=== PATIENT | female | born 1995 | race Caucasian/White ===

== ENCOUNTER 2017-01-08 15:17 | Emergency (ER) | payer MEDICAID ==
--- NOTE | 2017-01-08 17:18 | EDPHY ---
H & P Stated Complaint: L wrist pain post injury 1month ago Time Seen by Provider: 01/08/17 17:12 HPI/ROS: CHIEF COMPLAINT: Left wrist pain HISTORY OF PRESENT ILLNESS: The patient is a 21-year-old female who comes to the emergency department complaining of left wrist pain. She states that she fell snowboarding about a month ago and hyperflexed her wrist. She has had pain in that area ever since. it is over the dorsal wrist. No snuffbox tenderness or lateral pain. She has pain with flexion and extension of her wrist but not lateral motion. No tingling or numbness. She has not been evaluated prior to today for this injury. REVIEW OF SYSTEMS: Constitutional: denies: chills, fever, recent illness, recent injury EENTM: denies: blurred vision, double vision, nose congestion Respiratory: denies: cough, shortness of breath Cardiac: denies: chest pain, irregular heart rate, lightheadedness, palpitations Gastrointestinal/Abdominal: denies: abdominal pain, diarrhea, nausea, vomiting, blood streaked stools Genitourinary: denies: dysuria, frequency, hematuria, pain Musculoskeletal: See HPI Skin: denies: lesions, rash, jaundice, bruising Neurological: denies: headache, numbness, paresthesia, tingling, dizziness, weakness Hematologic/Lymphatic: denies: blood clots, easy bleeding, easy bruising Immunologic/allergic: denies: HIV/AIDS, transplant EXAM: GENERAL: Well-appearing, well-nourished and in no acute distress. HEAD: Atraumatic, normocephalic. EYES: Pupils equal round and reactive to light, extraocular movements intact, sclera anicteric, conjunctiva are normal. ENT: TMs normal, nares patent, oropharynx clear without exudates. Moist mucous membranes. NECK: Normal range of motion, supple without lymphadenopathy or JVD. LUNGS: Breath sounds clear to auscultation bilaterally and equal. No wheezes rales or rhonchi. HEART: Regular rate and rhythm without murmurs, rubs or gallops. ABDOMEN: Soft, nontender, normoactive bowel sounds. No guarding, no rebound. No masses appreciated. BACK: No CVA tenderness, no spinal tenderness, step-offs or deformities EXTREMITIES: Left dorsal wrist pain with flexion and extension. No visible deformity or swelling. NEUROLOGICAL: Cranial nerves II through XII grossly intact. Normal speech, normal gait. 5/5 strength, normal movement in all extremities, normal sensation PSYCH: Normal mood, normal affect. SKIN: Warm, dry, normal turgor, no visible rashes or lesions. Source: Patient Exam Limitations: No limitations - Personal History Current Tetanus/Diphtheria Vaccine: Yes Current Tetanus Diphtheria and Acellular Pertussis (TDAP): Yes - Medical/Surgical History Hx Asthma: No Hx Chronic Respiratory Disease: No Hx Diabetes: No Hx Cardiac Disease: No Hx Renal Disease: No Hx Cirrhosis: No Hx Alcoholism: No Hx HIV/AIDS: No Hx Splenectomy or Spleen Trauma: No Other PMH: depression - Family History Significant Family History: No pertinent family hx - Social History Smoking Status: Never smoked Alcohol Use: Sober Drug Use: None Constitutional: Initial Vital Signs Heart Rate 85 01/08/17 15:28 Respiratory Rate 16 01/08/17 15:28 Blood Pressure 118/69 01/08/17 15:28 O2 Sat (%) 97 01/08/17 15:28 O2 Delivery Mode Room Air Allergies/Adverse Reactions: No Known Allergies Allergy (Verified 10/18/16 18:08) Home Medications: Medication Instructions Recorded Sertraline HCl 07/30/16 Medical Decision Making - Diagnostics Imaging: X-ray: Left wrist x-ray was obtained. I viewed the images myself on the PACS system. My interpretation of the images is: Negative. The radiologist interpretation is negative. Procedures: Procedure: Splint placement. A Velcro wrist splint was applied. After application of the splint I returned and re-examined the patient. The splint was adequately immobilizing the joint and distal to the splint the patient's circulation and sensation was intact. ED Course/Re-evaluation: 6:15 p.m. we discussed the patient's x-ray results. She is relieved. I will place her in a Velcro brace and have her follow up with Hand surgery. I suspect sprain. Differential Diagnosis: Partial list of the Differential diagnosis considered include but were not limited to; wrist sprain, fracture, subluxation , scaphoid injury and although unlikely based on the history and physical exam, I also considered vascular disease, carpal tunnel, infection. I discussed these differential diagnoses and the plan with the patient as well as the usual and expected course. The patient understands that the diagnosis is provisional and that in medicine we are not always correct and that further workup is often warranted. Usual and customary warnings were given. All of the patient's questions were answered. The patient was instructed to return to the emergency department should the symptoms at all worsen or return, otherwise to followup with the physician as we discussed. Departure - Departure Disposition: Home, Routine, Self-Care Clinical Impression: Left wrist sprain Qualifiers: Encounter type: initial encounter Qualified Code(s): S63.502A - Unspecified sprain of left wrist, initial encounter Condition: Fair Instructions: Wrist Sprain (ED) Referrals: NONE *PRIMARY CARE P,. [Primary Care Provider] - As per Instructions Daniela Gallegos MD [Medical Doctor] - As per Instructions
[2017-01-08 18:31] VITALS: BP 121/81; PULSE 68; RESP 12; O2SAT 95
== END 2017-01-08 18:20 | disposition home or self-care (01) ==
DX: S63.502A Unspecified sprain of left wrist, initial encounter (principal); V00.311A Fall from snowboard, initial encounter; Y93.23 Activity, snow (alpine) (downhill) skiing, snowboarding, sledding, tobogganing and snow tubing
CPT/HCPCS: L3908

== ENCOUNTER 2017-01-15 18:24 | Emergency (ER) | payer MEDICAID ==
[2017-01-15 18:39] VITALS: RESP 16; TEMP 97.9; O2SAT 97
--- NOTE | 2017-01-15 18:53 | EDPHY ---
H & P Stated Complaint: dx sprained wrist/in splint/tingling Time Seen by Provider: 01/15/17 18:44 HPI/ROS: CHIEF COMPLAINT: Wrist pain and paresthesia HISTORY OF PRESENT ILLNESS: The patient is a 21-year-old female who comes to the emergency department complaining of continued wrist pain and now paresthesias in the web space of her left thumb. I saw her 1 week ago . At that time she is complaining of left wrist pain for 1 month after a snowboard accident when she fell on an outstretched hand. We completed x-rays that were unremarkable and I placed her in a Velcro wrist splint for comfort. I had her follow up with Hand surgery. She made appoint with Dr. Daniela Gallegos but cannot get in until January 22. She returns today because since she began wearing the Velcro wrist splint she has developed some numbness in the web space of her left thumb. She still has normal range of motion. She has pain to her wrist her with flexion and extension which is unchanged from previous. No visible swelling or erythema. No neck pain or shoulder pain. REVIEW OF SYSTEMS: Constitutional: denies: chills, fever, recent illness, recent injury EENTM: denies: blurred vision, double vision, nose congestion Respiratory: denies: cough, shortness of breath Cardiac: denies: chest pain, irregular heart rate, lightheadedness, palpitations Gastrointestinal/Abdominal: denies: abdominal pain, diarrhea, nausea, vomiting, blood streaked stools Genitourinary: denies: dysuria, frequency, hematuria, pain Musculoskeletal: See HPI Skin: denies: lesions, rash, jaundice, bruising Neurological: denies: headache, numbness, paresthesia, tingling, dizziness, weakness Hematologic/Lymphatic: denies: blood clots, easy bleeding, easy bruising Immunologic/allergic: denies: HIV/AIDS, transplant EXAM: GENERAL: Well-appearing, well-nourished and in no acute distress. HEAD: Atraumatic, normocephalic. EYES: Pupils equal round and reactive to light, extraocular movements intact, sclera anicteric, conjunctiva are normal. ENT: TMs normal, nares patent, oropharynx clear without exudates. Moist mucous membranes. NECK: Normal range of motion, supple without lymphadenopathy or JVD. LUNGS: Breath sounds clear to auscultation bilaterally and equal. No wheezes rales or rhonchi. HEART: Regular rate and rhythm without murmurs, rubs or gallops. ABDOMEN: Soft, nontender, normoactive bowel sounds. No guarding, no rebound. No masses appreciated. BACK: No CVA tenderness, no spinal tenderness, step-offs or deformities EXTREMITIES: Normal range of motion, no pitting or edema. No clubbing or cyanosis. No visible swelling. Pain with flexion or extension of wrist. Decreased sensation to webspace of left thumb. No abnormalities and forearm or elbow. No pain or tenderness or swelling of elbow. NEUROLOGICAL: Cranial nerves II through XII grossly intact. Normal speech, normal gait. 5/5 strength, normal movement in all extremities, paresthesias as above PSYCH: Normal mood, normal affect. SKIN: Warm, dry, normal turgor, no visible rashes or lesions. Source: Patient Exam Limitations: No limitations - Personal History LMP (Females 10-55): Extended Cycle BCP/Inj Current Tetanus/Diphtheria Vaccine: Yes - Medical/Surgical History Hx Asthma: No Hx Chronic Respiratory Disease: No Hx Diabetes: No Hx Cardiac Disease: No Hx Renal Disease: No Hx Cirrhosis: No Hx Alcoholism: No Hx HIV/AIDS: No Hx Splenectomy or Spleen Trauma: No Other PMH: depression - Family History Significant Family History: No pertinent family hx - Social History Smoking Status: Never smoked Alcohol Use: Sober Drug Use: None Constitutional: Initial Vital Signs Temperature (C) 36.6 C 01/15/17 18:36 Heart Rate 92 01/15/17 18:36 Respiratory Rate 16 01/15/17 18:36 Blood Pressure 106/63 01/15/17 18:36 O2 Sat (%) 97 01/15/17 18:36 O2 Delivery Mode Room Air Allergies/Adverse Reactions: No Known Allergies Allergy (Verified 01/15/17 18:36) Home Medications: Medication Instructions Recorded Sertraline HCl 07/30/16 Medical Decision Making Procedures: Procedure: Splint placement. A thumb spica splint was applied. After application of the splint I returned and re-examined the patient. The splint was adequately immobilizing the joint and distal to the splint the patient's circulation and sensation was intact. ED Course/Re-evaluation: The patient has continued pain and worsening paraesthesia since stopped beginning to wear a Velcro brace. I had her remove the brace. She has not been wearing it at night which I think is appropriate. I will refer her to other hand surgeons that maybe she can see sooner. I have paged Dr. Khan for consultation. 7:05 p.m. I spoke with Dr. Khan. He recommends a looser fitting or more comfortable brace for radial nerve compression. He suspects a scaphoid fracture that is not visible on x-ray. He will follow up with her in the clinic. Differential Diagnosis: Partial list of the Differential diagnosis considered include but were not limited to; wrist sprain, fracture, subluxation, neuropathy and although unlikely based on the history and physical exam, I also considered tendinitis, elbow injury, cervical spine injury. I discussed these differential diagnoses and the plan with the patient as well as the usual and expected course. The patient understands that the diagnosis is provisional and that in medicine we are not always correct and that further workup is often warranted. Usual and customary warnings were given. All of the patient's questions were answered. The patient was instructed to return to the emergency department should the symptoms at all worsen or return, otherwise to followup with the physician as we discussed. Departure - Departure Disposition: Home, Routine, Self-Care Clinical Impression: Paresthesia Wrist pain Qualifiers: Laterality: left Qualified Code(s): M25.532 - Pain in left wrist Condition: Good Instructions: Wrist Injury (ED), Splint Care (ED) Additional Instructions: We consulted Dr. Khan from the emergency department. He is on-call and should be able to see you sooner. Please make sure the office staff is aware of this when you call. Referrals: NONE *PRIMARY CARE P,. [Primary Care Provider] - As per Instructions Campbell Khan MD [Medical Doctor] - As per Instructions Lisa Almaguer MD [Medical Doctor] - As per Instructions
[2017-01-15 20:07] VITALS: BP 118/75; PULSE 67
== END 2017-01-15 20:07 | disposition home or self-care (01) ==
DX: R20.2 Paresthesia of skin (principal); M25.532 Pain in left wrist

== ENCOUNTER 2017-03-21 21:18 | Emergency (ER) | payer MEDICAID ==
[2017-03-21] MEDS ORDERED: FLUORESCEIN SODIUM 1 MG STRIP OP ONE (21:26)
[2017-03-21] MEDS ORDERED: PROPARACAINE 0.5% 15 ML OPHT DROP OP ONE (21:26)
[2017-03-21] MEDS ORDERED: GENTAMICIN 0.3% OINT PREPACK OPHT.OINT TAKEHOME ONE (22:23)
--- NOTE | 2017-03-21 22:39 | EDPHY ---
H & P Time Seen by Provider: 03/21/17 21:26 HPI/ROS: CHIEF COMPLAINT: Left eye redness HISTORY OF PRESENT ILLNESS: 21-year-old female presents emergency department complaining of red eye redness, pain and discharge that started this afternoon. The patient reports she feels like there is something in her eye. She denies sick contacts, no recent cough or cold. No headache, no eye pain, no flashing lights, sharp pain or floaters. Tetanus is up-to-date. Patient does not wear contact lenses. Smoking Status: Never smoked Physical Exam: Left eye Visual Acuity: Noted from Nurse's notes. Pupils: PERRLA, EOMI, no nystagmus, no trauma, no injection. Lids: No edema or swelling Skin: No proptosis, no periorbital erythema or swelling, no vesicles, no foreign body on lid eversion Conjunctivae: injected, not icteric, yellow discharge Cornea: Exam with slit lamp and fluoroscein shows no corneal abrasion, negative Tom Anterior chamber: Normal, no hyphema or hypopyon Constitutional: Initial Vital Signs Temperature (C) 36.4 C 03/21/17 21:28 Heart Rate 75 03/21/17 21:28 Respiratory Rate 14 03/21/17 21:28 Blood Pressure 123/78 H 03/21/17 21:28 O2 Sat (%) 94 03/21/17 21:28 O2 Delivery Mode Room Air Allergies/Adverse Reactions: No Known Allergies Allergy (Verified 01/15/17 18:36) Home Medications: Medication Instructions Recorded Sertraline HCl 07/30/16 Depo-Provera 03/21/17 MDM/Departure - MDM Medications Given: Discontinued Medications Fluorescein Sodium (Pheso-M-Hrmor) 1 mg OP EDNOW ONE Stop: 03/21/17 21:27 Last Admin: 03/21/17 21:36 Dose: 1 mg Gentamicin Sulfate (Gentak 0.3% Opht Oint Prepack) 1 tube TAKEHOME EDNOW ONE Stop: 03/21/17 22:24 Last Admin: 03/21/17 22:33 Dose: 1 tube Proparacaine HCl (Alcaine 0.5%) 1 drops OP EDNOW ONE Stop: 03/21/17 21:27 Last Admin: 03/21/17 21:36 Dose: 1 drop - Depart Disposition: Home, Routine, Self-Care Clinical Impression: Conjunctivitis Qualifiers: Conjunctivitis type: acute Acute conjunctivitis type: unspecified Laterality: left Qualified Code(s): H10.32 - Unspecified acute conjunctivitis, left eye Condition: Good Instructions: Gentamicin (Into the eye), Conjunctivitis (ED) Additional Instructions: Use gentamicin eye ointment 4 times a day for 7 days. Cool compresses to your eye, saline drops as much as needed for discomfort. Wash your hands frequently. Referrals: Cathie Gray MD [Non Staff Provider (MD)] - As per Instructions ( Wagon Washer on-call)
[2017-03-21 22:49] VITALS: BP 107/71; PULSE 73; RESP 16; TEMP 98.1; O2SAT 96
== END 2017-03-21 22:49 | disposition home or self-care (01) ==
DX: H10.32 Unspecified acute conjunctivitis, left eye (principal)

== ENCOUNTER 2018-01-28 08:07 | Emergency (ER) | payer MEDICAID ==
[2018-01-28 08:12] VITALS: BP 127/89; PULSE 82; RESP 18; TEMP 98.6; O2SAT 98
--- NOTE | 2018-01-28 08:31 | EDPHY ---
H & P Time Seen by Provider: 01/28/18 08:30 HPI/ROS: Chief complaint. Sore throat HPI. 22-year-old male sore throat for 4 days. Sick contacts at school. She has congestion a little bit of cough. Hurts to swallow but she is able to swallow secretions per she is a little hoarse. No shortness of breath or chest pain. No abdominal pain or vomiting or diarrhea. No rash. Subjective fever and chills ROS Constitutional. Fever and chills Eyes. no problems with vision ENT. Congestion and sore throat Cardiovascular. no chest pain Respiratory. No shortness of breath but slight cough Abdominal. no abdominal pain, no nausea/vomiting, no diarrhea . no problems urinating MS. no calf pain/swelling, no neck/back pain, no joint pain Skin. no rash Lymph. no swollen glands Neuro. no headache, no dizziness, no difficulty walking or with speech Past Medical/Surgical History: Depression Social History: Single, nonsmoker, no alcohol Smoking Status: Never smoked Physical Exam: General Appearance: Alert while female mild distress vital signs are stable Eyes: Pupils equal and round no pallor or injection. ENT, tympanic membranes normal. Pharynx injected without exudate. Mucous membranes are moist. Anterior cervical adenopathy Respiratory: There are no retractions, lungs are clear to auscultation. Cardiovascular: Regular rate and rhythm. Gastrointestinal: Abdomen is soft and nontender, no masses, bowel sounds normal. Neurological: Awake and alert, sensory and motor exams grossly normal. Skin: Warm and dry, no rashes. Musculoskeletal: Neck is supple nontender. Extremities symmetrical, full range of motion. Psychiatric: Patient is oriented X 3, there is no agitation. Constitutional: Initial Vital Signs Temperature (C) 37 C 01/28/18 08:08 Heart Rate 82 01/28/18 08:08 Respiratory Rate 18 01/28/18 08:08 Blood Pressure 127/89 H 01/28/18 08:08 O2 Sat (%) 98 01/28/18 08:08 O2 Delivery Mode Room Air Allergies/Adverse Reactions: No Known Allergies Allergy (Verified 01/28/18 08:08) Home Medications: Medication Instructions Recorded Depo-Provera 03/21/17 Penicillin V Potassium [Penicillin 500 mg PO BID #14 tab 01/28/18 VK] Medical Decision Making Procedures: Decadron and ibuprofen by mouth ED Course/Re-evaluation: Patient remained stable. She and I discussed treatment plan including criteria for return importance of follow-up and further evaluation. She expresses understanding and agreement Differential Diagnosis: I have considered viral versus bacterial etiology. I considered strep throat as well as glossitis. No evidence for epiglottitis. Departure - Departure Disposition: Home, Routine, Self-Care Clinical Impression: Acute pharyngitis Qualifiers: Pharyngitis/tonsillitis etiology: unspecified etiology Qualified Code(s): J02.9 - Acute pharyngitis, unspecified Condition: Good Instructions: Pharyngitis (ED) Additional Instructions: Drink plenty of fluids and stay hydrated. Penicillin as antibiotic. Tylenol 1000 mg every 4-6 hours, ibuprofen 600 mg every 6 hr needed for fever and sore throat. Return for worsening pain, fever, trouble swallowing and breathing. Recheck in 2 days if not improved Referrals: [facility],. [Clinic] - 2-3 days, if not improved Stand Alone Forms: School Excuse Prescriptions: Penicillin V Potassium [Penicillin VK] 500 mg PO BID #14 tab
[2018-01-28] MEDS ORDERED: IBUPROFEN 600 MG TAB PO ONE (08:42)
[2018-01-28] MEDS ORDERED: DEXAMETHASONE 4 MG TAB PO ONE (08:43)
== END 2018-01-28 09:26 | disposition home or self-care (01) ==
DX: J02.9 Acute pharyngitis, unspecified (principal)

== ENCOUNTER 2018-03-05 20:13 | Emergency (ER) | payer MEDICAID ==
--- NOTE | 2018-03-05 20:42 | EDPHY ---
H & P Stated Complaint: bilat leg pain since from dancing Time Seen by Provider: 03/05/18 20:36 HPI/ROS: HPI: This is a 22-year-old female who presents with Chief Complaint: Bilateral leg pain since from dancing Location: Bilateral leg Quality: Pain Duration: 5 days Signs and Symptoms: No bleeding, no radiation, no numbness, no weakness, no tingling, no incontinence, no decreased range of motion, no swelling, no pain, no fever Timing: Severity: Context: On Depo Provera. Denies LOC/head injury/neck pain/dizziness/nausea/ vomiting/amnesia. Modifying Factors: Comment: ROS: see HPI Constitutional: No fever, no chills, no weight loss Eyes: No blurred vision Respiratory: No shortness of breath, no cough Cardiovascular: No chest pain Gastrointestinal: No nausea, no vomiting no diarrhea Genitourinary: No dysuria Extremities: No myalgias Neurologic: No weakness, no numbness Skin: No rashes Hematologic: No bruising, no bleeding MEDICAL/SURGICAL/SOCIAL HISTORY: Medical history: Major depression Surgical history: Denies Social history: Family history noncontributory. CONSTITUTIONAL: awake and alert, no obvious distress HEENT: Atraumatic and normocephalic, PERRL, EOMI. Tympanic membranes clear. Oropharynx clear, no exudate and moist pink mucosa. Airway patent. No lymphadenopathy. No meningismus. Cardiovascular: Normal S1/S2, regular rate, regular rhythm, without murmur rub or gallop. PULMONARY/CHEST: Symmetrical and nontender. Clear to auscultation bilaterally. Good air movement. No accessory muscle usage. ABDOMEN: Soft, nondistended, nontender, no rebound, no guarding, no peritoneal signs, no masses or organomegaly. No CVAT. EXTREMITIES: 2/2 pulses, strength 5/5, no deformities, no clubbing, no cyanosis or edema. NEUROLOGICAL: no focal neuro deficits. GCS 15. SKIN: Warm and dry, no erythema. no rash. Good capillary refill. Source: Patient Exam Limitations: No limitations - Personal History LMP (Females 10-55): Extended Cycle BCP/Inj Current Tetanus/Diphtheria Vaccine: Yes Current Tetanus Diphtheria and Acellular Pertussis (TDAP): Yes - Medical/Surgical History Hx Asthma: No Hx Chronic Respiratory Disease: No Hx Diabetes: No Hx Cardiac Disease: No Hx Renal Disease: No Hx Cirrhosis: No Hx Alcoholism: No Hx HIV/AIDS: No Hx Splenectomy or Spleen Trauma: No Other PMH: depression - Social History Smoking Status: Never smoked Constitutional: Initial Vital Signs Temperature (C) 36.3 C 03/05/18 20:15 Heart Rate 97 03/05/18 20:15 Respiratory Rate 16 03/05/18 20:15 Blood Pressure 104/75 03/05/18 20:15 O2 Sat (%) 95 03/05/18 20:15 O2 Delivery Mode Room Air Allergies/Adverse Reactions: No Known Allergies Allergy (Verified 03/05/18 20:17) Home Medications: Medication Instructions Recorded Depo-Provera 03/21/17 Departure - Departure Condition: Good Referrals: NONE *PRIMARY CARE P,. [Primary Care Provider] - As per Instructions
--- NOTE | 2018-03-05 20:45 | EDPHY ---
H & P Stated Complaint: bilat leg pain since from dancing Source: Patient Exam Limitations: No limitations - Personal History LMP (Females 10-55): Extended Cycle BCP/Inj Current Tetanus/Diphtheria Vaccine: Yes Current Tetanus Diphtheria and Acellular Pertussis (TDAP): Yes - Medical/Surgical History Hx Asthma: No Hx Chronic Respiratory Disease: No Hx Diabetes: No Hx Cardiac Disease: No Hx Renal Disease: No Hx Cirrhosis: No Hx Alcoholism: No Hx HIV/AIDS: No Hx Splenectomy or Spleen Trauma: No Other PMH: depression - Family History Significant Family History: No pertinent family hx - Social History Smoking Status: Never smoked Alcohol Use: Sober Drug Use: None Time Seen by Provider: 03/05/18 20:36 HPI/ROS: CHIEF COMPLAINT: Leg pain HISTORY OF PRESENT ILLNESS: Patient is a 22-year-old female who states that she was dancing on . Her legs were sore the next morning she thought that it was just muscle soreness. She states that she was walking awkwardly because of the soreness and because of this has pain at the bridge of both feet. The left foot has improved but the right foot persists in hurting. She has not had any swelling or edema. She also states that she has persistent pain in her calves bilaterally and her thigh on the right. She does have a depo injection and traveled to [place] for spring. She is not on any other medications. REVIEW OF SYSTEMS: Constitutional: denies: chills, fever, recent illness, recent injury EENTM: denies: blurred vision, double vision, nose congestion Respiratory: denies: cough, shortness of breath Cardiac: denies: chest pain, irregular heart rate, lightheadedness, palpitations Gastrointestinal/Abdominal: denies: abdominal pain, diarrhea, nausea, vomiting, blood streaked stools Genitourinary: denies: dysuria, frequency, hematuria, pain Musculoskeletal: See HPI Skin: denies: lesions, rash, jaundice, bruising Neurological: denies: headache, numbness, paresthesia, tingling, dizziness, weakness Hematologic/Lymphatic: denies: blood clots, easy bleeding, easy bruising Immunologic/allergic: denies: HIV/AIDS, transplant EXAM: GENERAL: Well-appearing, well-nourished and in no acute distress. HEAD: Atraumatic, normocephalic. EYES: Pupils equal round and reactive to light, extraocular movements intact, sclera anicteric, conjunctiva are normal. ENT: TMs normal, nares patent, oropharynx clear without exudates. Moist mucous membranes. NECK: Normal range of motion, supple without lymphadenopathy or JVD. LUNGS: Breath sounds clear to auscultation bilaterally and equal. No wheezes rales or rhonchi. HEART: Regular rate and rhythm without murmurs, rubs or gallops. ABDOMEN: Soft, nontender, normoactive bowel sounds. No guarding, no rebound. No masses appreciated. BACK: No CVA tenderness, no spinal tenderness, step-offs or deformities EXTREMITIES: Pain to medial aspect of right foot underneath at the bridge. No deformity or swelling. Normal range of motion, no pitting or edema. No clubbing or cyanosis. Positive Homans no tenderness to calves or thighs. NEUROLOGICAL: Cranial nerves II through XII grossly intact. Normal speech, normal gait. 5/5 strength, normal movement in all extremities, normal sensation PSYCH: Normal mood, normal affect. SKIN: Warm, dry, normal turgor, no visible rashes or lesions. (Jed Guthrie) Constitutional: Initial Vital Signs Temperature (C) 36.3 C 03/05/18 20:15 Heart Rate 97 03/05/18 20:15 Respiratory Rate 16 03/05/18 20:15 Blood Pressure 104/75 03/05/18 20:15 O2 Sat (%) 95 03/05/18 20:15 O2 Delivery Mode Room Air Allergies/Adverse Reactions: No Known Allergies Allergy (Verified 03/05/18 20:17) Home Medications: Medication Instructions Recorded Depo-Provera 03/21/17 Medical Decision Making - Diagnostics Imaging: Discussed imaging studies w/ call manager Radiologist - Diagnostics Imaging Results: Bilateral leg ultrasound reviewed by me and discussed with Dr. Johnson is negative for DVT (Shahram Mensah) ED Course/Re-evaluation: Patient's care was turned over to me by Dr. Guthrie at 9:00 p.m.. At 9:50 p.m. Patient is re-evaluated by me. She and I discussed imaging study results, treatment plan including criteria for return importance of follow-up and further evaluation. She expresses understanding and agreement (Shahram Mensah) We discussed the patient's foot x-ray which is reassuring. She is currently getting ultrasound. I will transfer care to Dr. Shahram Mensah this point. ( Jed Guthrie) Differential Diagnosis: Partial list of the Differential diagnosis considered include but were not limited to; ft fracture, tendonitis, DVT, muscle strain and although unlikely based on the history and physical exam, I also considered vasculitis, cauda equina, sciatica. (Jed Guthrie) Departure - Departure Disposition: Home, Routine, Self-Care Clinical Impression: Leg pain Qualifiers: Laterality: bilateral Qualified Code(s): M79.604 - Pain in right leg; M79.605 - Pain in left leg; M79.605 - Pain in left leg Condition: Good Instructions: Leg Pain (ED) Additional Instructions: Ibuprofen 600 mg every 6 hr for discomfort. Activity as tolerated. Return for worsening symptoms. Recheck in 2 days if not improved Referrals: NONE *PRIMARY CARE P,. [Primary Care Provider] - As per Instructions [facility],. [Clinic] - 2-3 days, if not improved
[2018-03-05 22:40] VITALS: BP 122/75
== END 2018-03-05 22:41 | disposition home or self-care (01) ==
DX: M79.604 Pain in right leg (principal); M79.605 Pain in left leg

== ENCOUNTER 2018-04-06 17:59 | Emergency (ER) | payer MEDICAID ==
[2018-04-06 18:04] VITALS: BP 100/65
--- NOTE | 2018-04-06 18:09 | EDPHY ---
H & P Stated Complaint: upper left back pain x 1 week worse today, worse mvmt, no trauma Time Seen by Provider: 04/06/18 18:04 - Personal History LMP (Females 10-55): Extended Cycle BCP/Inj - Medical/Surgical History Hx Asthma: No Hx Chronic Respiratory Disease: No Hx Diabetes: No Hx Cardiac Disease: No Hx Renal Disease: No Hx Cirrhosis: No Hx Alcoholism: No Hx HIV/AIDS: No Hx Splenectomy or Spleen Trauma: No Other PMH: depression - Social History Smoking Status: Never smoked Constitutional: Initial Vital Signs Temperature (C) 36.7 C 04/06/18 18:01 Heart Rate 78 04/06/18 18:01 Respiratory Rate 16 04/06/18 18:01 Blood Pressure 100/65 04/06/18 18:01 O2 Sat (%) 98 04/06/18 18:01 O2 Delivery Mode Room Air Allergies/Adverse Reactions: No Known Allergies Allergy (Verified 04/06/18 18:00) Home Medications: Medication Instructions Recorded Depo-Provera 03/21/17 Hydrocodone/APAP 5/325 [[place] 1 - 2 each PO Q4-6PRN PRN #10 tab 04/06/18 5/325] Ibuprofen [Motrin] 800 mg PO Q8 #20 tab 04/06/18 Medical Decision Making ED Course/Re-evaluation: CHIEF COMPLAINT: Left upper back pain HISTORY OF PRESENT ILLNESS: The patient is a 22 y/o female complaining of left upper back pain onset 1 week ago. She has a history of aching upper back pain due to an old gymnastics injury but she is now having sharp pain. This pain is aggravated with movement. Denies taking medication for this pain. Denies recent trauma or injury. Denies chest pain, abdominal pain, urinary or bowel complaints, paresthesias or numbness. REVIEW OF SYSTEMS: A 10 point review of systems was performed and is negative with the exception of the elements mentioned in the history of present illness. PHYSICAL EXAM: HR, BP, O2 Sat, RR. Temp noted General Appearance: Alert, well hydrated, appropriate, and non-toxic appearing. Head: Atraumatic without scalp tenderness or obvious injury Eyes: Pupils equal, round, reactive to light and accommodation, EOMI, no trauma , no injection. Ears: Clear bilaterally, no perforation, normal landmarks Nose: Atraumatic, no rhinorrhea, clear. Throat: There is no erythema or exudates, no lesions, normal tonsils, mucus membranes moist. Neck: Supple, nontender, no lymphadenopathy. Back: Left upper back tenderness Respiratory: No retractions, no distress, no wheezes, and no accessory muscle use. Lungs are clear to auscultation bilaterally. Cardiovascular: Regular rate and rhythm, no murmurs, rubs, or gallops. Good capillary refill all extremities. Gastrointestinal: Abdomen is soft, nontender, non-distended, no masses, no rebound, no guarding, no peritoneal signs. Musculoskeletal: Normal active ROM of all extremities, atraumatic. Neurological: Alert, appropriate, and interactive. Nonfocal neuro. Skin: No rashes, good turgor, no nodules on palpation. Past medical history: Denies Past surgical history: Denies Family history: Denies Social history: Lives in [place], student at , single DIFFERENTIAL DIAGNOSIS: The differential diagnosis for the patient's back pain included but was not limited to musculoskeletal pain, epidural abscess, herniated disk, spinal fracture, and intra-abdominal causes including urinary system. MEDICAL DECISION MAKING: The patient is a 22 y/o female presenting with sharp left upper back pain onset 1 week ago. On exam she has left upper back tenderness. Imaging and laboratory results are not indicated at this time. Reassessed patient and discussed Vicodin and Motrin prescription. Patient's symptoms are most likely levator scapulae or rhomboid musculoskeletal strain. Return precautions provided; patient is comfortable with this plan. Departure - Departure Disposition: Home, Routine, Self-Care Clinical Impression: Muscle strain of left upper back Qualifiers: Encounter type: initial encounter Qualified Code(s): S29.012A - Strain of muscle and tendon of back wall of thorax, initial encounter Condition: Good Instructions: Hydrocodone/Acetaminophen (By mouth), Muscle Strain (ED) Additional Instructions: 1. Take Vicodin as prescribed for severe pain. 2. Take Motrin for pain. 3. Follow up with [facility]. 4. Return to the emergency department for severe pain, fever, numbness, difficulty walking, change in location or nature of pain or other concerns. 5. Try using a heating pad. Referrals: [facility] [Outside] - As per Instructions Prescriptions: Hydrocodone/APAP 5/325 [[place] 5/325] 1 - 2 each PO Q4-6PRN PRN #10 tab PRN Reason: Pain, Moderate Ibuprofen [Motrin] 800 mg PO Q8 #20 tab Report Scribed for: Juan Miguel Sutherland Report Scribed by: Natalia Landry Date of Report: 04/06/18 Time of Report: 18:06
[2018-04-06] MEDS ORDERED: HYDROCOD/APAP 5/325 PREPACK#6 BTL TAKEHOME ONE (18:11)
== END 2018-04-06 18:21 | disposition home or self-care (01) ==
DX: S29.012A Strain of muscle and tendon of back wall of thorax, initial encounter (principal); X58.XXXA Exposure to other specified factors, initial encounter